=== PATIENT | female | born 1970 | race Caucasian/White ===

== ENCOUNTER 2017-04-27 09:02 | Inpatient (IN) | payer OTHER ==
[~2017-04-27] VITALS: Ht 162.6 cm; Wt 101.7 kg
[2017-04-27 10:42] LABS: UA SPECIFIC GRAVITY 1.025 (1.005-1.035); microscopic required? YES; urine erythrocyte NEGATIVE (NEGATIVE)
[2017-04-27 10:48] LABS: CALCIUM 9.4 mg/dL (8.5-10.1); CARBON DIOXIDE 25.2 mmol/L (21-32); CHLORIDE SERUM 101 mmol/L (98-107); CREATININE SERUM 0.9 mg/dL (0.6-1.0); GFR1 > 60 mL/min; GLUCOSE SERUM 126 mg/dL (74-106); SODIUM SERUM 135 mmol/L (136-145)
[2017-04-27 10:50] LABS: BASOPHIL % 0.9 % (0-2)
[2017-04-27 10:53] LABS: ALBUMIN 4.1 g/dL (3.4-5.0); ALKALINE PHOSPHATASE 74 U/L (46-116); ALT/SGPT 34 U/L (14-59); AST/SGOT 22 U/L (15-37); BILIRUBIN TOTAL 0.41 mg/dL (0.20-1.00); LIPASE 132 IU/L (73-393); TOTAL PROTEIN, SERUM 8.4 g/dL (6.4-8.2)
[2017-04-27 11:00] LABS: PLATELET COUNT 408 x10^3mcL (130-400)
[2017-04-27] MEDS ORDERED: DEPO-PROVER150 MG/ML IM (12:56)
[2017-04-27 13:54] LABS: MAGNESIUM 1.9 mg/dL (1.8-2.4)
[2017-04-27 13:55] LABS: CHOLESTEROL/HDL RATIO 2.7; T3 TOTAL 1.27 ng/mL
[2017-04-27 14:02] LABS: FREE T4 1.12 ng/dL (0.76-1.46); FREE THYROXINE INDEX 3.2 ug/dL (1.4-4.5); T4(THYROXINE) 9.5 ug/dL (4.7-13.3)
[2017-04-27 14:11] VITALS: BP 153/92
[2017-04-27 14:15] VITALS: Ht 162.6 cm; Wt 101.7 kg
[2017-04-27 16:17] VITALS: BP 135/85
[2017-04-27 21:33] VITALS: BP 123/80
[2017-04-28 05:31] VITALS: BP 124/71
[2017-04-28 06:22] LABS: BASOPHIL % 0.5 % (0-2); RED CELL DISTRIBUTION WIDTH 13.2 % (11.5-14.5)
[2017-04-28 06:25] LABS: PLATELET COUNT 427 x10^3mcL (130-400)
[2017-04-28 06:37] LABS: CALCIUM 8.6 mg/dL (8.5-10.1); CHLORIDE SERUM 107 mmol/L (98-107); CREATININE SERUM 0.9 mg/dL (0.6-1.0); GFR1 > 60 mL/min; GLUCOSE SERUM 116 mg/dL (74-106); POTASSIUM SERUM 4.2 mmol/L (3.5-5.1); SODIUM SERUM 141 mmol/L (136-145)
[2017-04-28 09:38] LABS: AMPHETAMINE QUAL UR NONE DETECTED (NEG <=1000)
[2017-04-28 12:00] VITALS: BP 129/78
[2017-04-28 17:00] VITALS: BP 136/72
[2017-04-28 20:48] VITALS: BP 143/74
[2017-04-29 05:23] VITALS: BP 113/68
[2017-04-29 06:44] LABS: BASOPHIL % 0.3 % (0-2); PLATELET COUNT 375 x10^3mcL (130-400); RED CELL DISTRIBUTION WIDTH 13.2 % (11.5-14.5)
[2017-04-29 06:57] LABS: CALCIUM 8.4 mg/dL (8.5-10.1); CARBON DIOXIDE 23.8 mmol/L (21-32); CHLORIDE SERUM 106 mmol/L (98-107); CREATININE SERUM 0.8 mg/dL (0.6-1.0); GFR1 > 60 mL/min; GLUCOSE SERUM 104 mg/dL (74-106); MAGNESIUM 1.9 mg/dL (1.8-2.4); PHOSPHOROUS 4.2 mg/dL (2.5-4.9); POTASSIUM SERUM 4.2 mmol/L (3.5-5.1); SODIUM SERUM 139 mmol/L (136-145)
[2017-04-29 09:51] VITALS: BP 133/78
[2017-04-29] MEDS ORDERED: ACETAMINOPHEN-H1 TA1 PO (10:28)
[2017-04-29] MEDS ORDERED: COL100 PO (10:29)
[2017-04-29 11:51] VITALS: BP 133/78
[2017-04-29 12:22] VITALS: BP 122/68
== END 2017-04-29 17:40 | disposition home or self-care (01) | DRG 263 ==
LOC: ED 09:02 → DU 12:09 → MU 12:09 → DU 13:47 → MU 04-29 09:47
PROVIDERS: Emergency Medicine; Surgery; ADMIT Family Medicine Sports Medicine
PROC: 0FT44ZZ Resection of Gallbladder, Percutaneous Endoscopic Approach (ICD-10-PCS; principal; 2017-04-28 08:00)
DX: K80.00 Calculus of gallbladder with acute cholecystitis without obstruction (principal); N17.0 Acute kidney failure with tubular necrosis; K82.1 Hydrops of gallbladder; E87.1 Hypo-osmolality and hyponatremia; R73.03 Prediabetes; E66.9 Obesity, unspecified; Z68.38 Body mass index [BMI] 38.0-38.9, adult; Z53.29 Procedure and treatment not carried out because of patient's decision for other reasons
CPT/HCPCS: 82962; 83880; 84439; J0690; J1170; J1885; J1956; J2405; J3010; J3490; J7030; Q0092